=== PATIENT | female | born 1985 | race Caucasian/White ===

== ENCOUNTER 2022-01-12 00:24 | Observation (INO) | payer MEDICAID ==
[~2022-01-12] VITALS: Ht 167 cm; Wt 53.9 kg
[2022-01-13 00:45] VITALS: BP 110/68
[2022-01-13] MEDS ORDERED: ONDANSETRON 4 MG/2 ML (SDV) Z0FRAN IV PRN (01:00)
[2022-01-13] MEDS ORDERED: ACETAMINOPHEN 325 MG TABLET PO PRN (01:00)
[2022-01-13] MEDS ORDERED: polyethylene glycoL POWDER 17 GM (MIRALAX) PACK PO PRN (01:00)
[2022-01-13] MEDS ORDERED: ONDANSETRON 4 MG (ZOFRAN) ORAL DISSOLVE TAB PO PRN (01:00)
[2022-01-13] MEDS ORDERED: MELATONIN 3 MG TABLET PO PRN (01:00)
[2022-01-13] MEDS ORDERED: diphenhydrAMINE 25 MG TAB (BENADRYL) PO PRN (01:00)
[2022-01-13] MEDS ORDERED: ANTACID SUSP 30 ML UDC (MYLANTA) PO PRN (01:00)
[2022-01-13 01:59] LABS: POTASSIUM 3.1 MMOL/L (3.6-5.0)
[2022-01-13] MEDS: LACTATED RINGERS 1,000 ML IV SCH ×2 (01:59→14:59)
[2022-01-13 02:00] LABS: CALCIUM 8.7 MG/DL (8.5-10.1)
[2022-01-13 02:05] LABS: CREATININE SERUM 0.79 MG/DL (0.60-1.30)
[2022-01-13 02:07] LABS: MAGNESIUM 1.7 MG/DL (1.6-2.4)
[2022-01-13] MEDS ORDERED: KCL 20 MEQ TAB (K-DUR) PO SCH (06:00)
[2022-01-13] MEDS ORDERED: KCL 20 MEQ TAB (K-DUR) PO ONE (06:00)
[2022-01-13] MEDS ORDERED: MAGNESIUM 1 GM/100 ML IVPB 100 ML IV SCH (06:00)
[2022-01-13] MEDS ORDERED: POTASSIUM CL 10MEQ/50ML IVPB 50 ML IV SCH (06:00)
--- NOTE | 2022-01-13 14:59 | Consultation-Cardiology ---
HPI-Cardiology Cardiology Consultation: Date of Consultation 01/13/22 Date of Admission 01/13/22 Attending Physician Peri Cash MD Admitting Physician No,Local Physician Consulting Physician BARTOLOME LOZANO JR, MD HPI: Time Seen by a Provider: 14:55 Chief Complaint: Reason for consultation: Abnormal troponin level. I had the pleasure of seeing Loly in the intensive care unit at [facility] in [place], [place] this afternoon. She has no known history of cardiac disease. Yesterday she was admitted to the hospital due to narcotic overdose. Apparently, a family member found her unconscious at home and called 911. At some point, she had CPR followed by administration of Narcan at which time she regained consciousness. Unclear whether or not she was actually pulseless. She was then brought to the hospital for further treatment and evaluation. She did have 1 troponin level drawn in the emergency room that was borderline elevated. As such, a cardiology consultation was requested. I ordered a follow-up troponin which was then undetectable. She does have some soreness in her chest from the CPR but denied any chest pain prior to yesterday's incidence. She denies dyspnea, paroxysmal nocturnal dyspnea, orthopnea, palpitations, lightheadedness, syncope, or ankle edema. Certain portions of this document may have been dictated utilizing voice recognition technology. Inherent to this technology, typographical and grammatical errors may exist. As much as I am diligent to identify and correct these mistakes, some errors may remain in the document. Review of Systems-Cardiology Review of Systems Other comments Review of 10 organ systems is as per the history of present illness, otherwise negative. LGC-Cuvppv-Hsyawi Hx Patient Social History Smoking Status: Current Everyday Smoker Alcohol Use?: No Tobacco type used: Cigarettes Past Medical History PMH As described under Assessment. Family Medical History Family Medical History: She does not report any family history of premature coronary artery disease in first-degree relatives. Allergies and Home Medications Allergies Coded Allergies: No Allergy Information Available (Unverified , 01/12/22) Patient Home Medication List Home Medication List Reviewed: Yes Exam Vital Signs Vital Signs Date Time Temp Pulse Resp B/P (MAP) Pulse Ox O2 Delivery O2 Flow Rate FiO2 01/13/22 12:59 90 01/13/22 12:43 Room Air 01/13/22 12:10 38.0 4/3/22 04:00 16 99 2.00 Physical Exam General: Alert. No acute distress. Well nourished and appears stated age. Eye: Extraocular movements are intact. Conjunctivae are clear. There are no xanthelasma. Bilateral periorbital ecchymoses. HENT: Normocephalic. As above, bilateral periorbital ecchymoses. Carotid pulsations 2/2 without bruits. Neck: Jugular venous pressure does not appear elevated. No thyromegaly appreciated. Respiratory: Lungs are clear to auscultation. Respirations are non-labored. Breath sounds are equal. Symmetrical chest wall expansion. Cardiovascular: Normal rate. Regular rhythm. No murmur. No gallop. Point of maximal impulse is not appear displaced. Good pulses equal in all extremities. No edema. Gastrointestinal: Soft. Normal bowel sounds. Skin: Skin turgor is normal. There is no pallor. Musculoskeletal: No kyphosis or scoliosis appreciated. Neurologic: Alert and oriented to person, place, time. Cranial nerves 3-12 appear grossly intact. The patient has good motor tone strength in the upper and lower extremities bilaterally. Psychiatric: Cooperative. Appropriate mood & affect. Labs Laboratory Tests Test 01/13/22 01:42 01/13/22 09:36 Range/Units Sodium Level 139 135-145 MMOL/L Potassium Level 3.1 L 3.6-5.0 MMOL/L Chloride Level 102 98-107 MMOL/L Carbon Dioxide Level 23 21-32 MMOL/L Anion Gap 14 5-14 MMOL/L Blood Urea Nitrogen 7 7-18 MG/DL Creatinine 0.79 0.60-1.30 MG/DL Estimat Glomerular Filtration Rate 101 BUN/Creatinine Ratio 9 Glucose Level 90 70-105 MG/DL Calcium Level 8.7 8.5-10.1 MG/DL Magnesium Level 1.7 1.6-2.4 MG/DL Troponin I 0.043 H < 0.028 <0.028 NG/ML Triglycerides Level 58 <150 MG/DL Cholesterol Level 138 < 200 MG/DL LDL Cholesterol Direct 75 1-129 MG/DL VLDL Cholesterol 12 5-40 MG/DL HDL Cholesterol 54 40-60 MG/DL Thyroid Stimulating Hormone (TSH) 0.46 0.35-4.94 UIU/ML Radiology Echocardiogram obtained earlier today showed normal left ventricular chamber size, wall thickness and systolic function. Ejection fraction 60-65%. Normal left trigger diastolic function. The inferior vena cava was dilated with decreased respiratory variation consistent with elevated right atrial pressure. The estimated pulmonary artery systolic pressure was 35 mmHg which is borderline elevated. ECG Impression ECG Comment Electrocardiogram from this morning showed sinus rhythm with poor R wave progression. Diagnosis/Problems Diagnosis/Problems (1) Troponin level elevated Assessment & Plan: Her first troponin level was borderline elevated but this w as in the setting of opioid overdose and a short course of CPR. Her second troponin level was undetectable. I do not believe this represents an acute myocardial infarction. This may have just been a slight troponin leak due to the CPR with possible minimal cardiac contusion without wall motion abnormalities noted on her echocardiogram. From a cardiac standpoint, the patient can be discharged home. She does not need any long-term cardiology follow-up at this point in time. (2) Chest pain Assessment & Plan: Most likely related to CPR. She can take Tylenol or ibuprofen as needed. There was no evidence of pericardial effusion on her echocardiogram. (3) Opioid overdose Assessment & Plan: This was the most likely cause of the patient's unresponsiveness. (4) Cigarette smoker Assessment & Plan: She needs to quit smoking. BARTOLOME LOZANO JR, MD Jan 13, 2022 14:59
[2022-01-13] MEDS ORDERED: NALO4SPR NS (15:58)
[2022-01-13 16:30] VITALS: BP 110/68
--- NOTE | 2022-01-13 19:25 | Discharge Summary ---
Discharge Summary Hospital Course Problems/Dx: (1) Opioid overdose Status: Acute (2) Troponin level elevated Status: Acute (3) Chest pain Status: Acute (4) Cigarette smoker Status: Acute Hospital Course Date of Admission: Jan 13, 2022 at 00:52 Admission Diagnosis : Opioid overdose Family Physician/Provider: Magdy Olivo Physician Date of Discharge: 01/13/22 Discharge Diagnosis: Opioid overdose Hospital Course: Loly Davies is a 36 year old female with H opioid abuse who presented after a heroin overdose. She was found down and thought to be pulseless. CPR was initiated and she was then given Narcan. Upon receiving Narcan, she became alert. She was taken to the [facility] ER where she was stabilized. She did not require any further Narcan and her respiratory status improved. She had a slightly elevated troponin level, so was transfered to [facility] for cardiology evaluation. This was thought to be due to the CPR performed and not due to an acute [place]. Her troponin level quickly normalized. She had an echo which was unremarkable. She was instructed to discontinue drug use. She should establish with a primary care physician. Labs and Pending Lab Test: Laboratory Tests 01/13/22 01:42: Sodium Level 139, Potassium Level 3.1L, Chloride Level 102, Carbon Dioxide Level 23, Anion Gap 14, Blood Urea Nitrogen 7, Creatinine 0.79, Estimat Glomerular Filtration Rate 101, BUN/Creatinine Ratio 9, Glucose Level 90, Calcium Level 8.7, Magnesium Level 1.7, Troponin I 0.043H, Triglycerides Level 58, Cholesterol Level 138, LDL Cholesterol Direct 75, VLDL Cholesterol 12, HDL Cholesterol 54, Thyroid Stimulating Hormone (TSH) 0.46 01/13/22 09:36: Troponin I < 0.028 Home Meds Active Narcan (Naloxone HCl) 4 Mg [place] 4 Mg NS PRN 1 Days Assessment/Pt Instructions See instructions Discharge Planning: >30 minutes discharge planning Discharge Instructions Discharge Diet: No Restrictions Activity as Tolerated: Yes Discharge Physical Examination Vital Signs Vital Signs Date Time Temp Pulse Resp B/P (MAP) Pulse Ox O2 Delivery O2 Flow Rate FiO2 01/13/22 16:30 36.6 90 16 110/68 99 Room Air 2.00 General Appearance: No Apparent Distress, WD/WN HEENT: PERRL/EOMI, Pharynx Normal, Other (facial bruising) Respiratory: Lungs Clear, No Respiratory Distress, Other (chest tender to palpation) Cardiovascular: Regular Rate, Rhythm, No Murmur, Other Gastrointestinal: Normal Bowel Sounds, Soft Extremity: Normal Inspection, No Pedal Edema Skin: Normal Color, Warm/Dry Neurologic/Psychiatric: Alert, Oriented x3, Other (flat affect) Allergies: Coded Allergies: No Allergy Information Available (Unverified , 01/12/22) Discharge Summary Date of Admission Jan 13, 2022 at 00:52 Date of Discharge Jan 13, 2022 at 16:30 Discharge Date: Jan 13, 2022 Discharge Time: 16:30 Admission Diagnosis Opioid overdose Consults/Procedures Consulations Cardiology Discharge Diagnosis (1) Opioid overdose Status: Acute (2) Troponin level elevated Status: Acute (3) Chest pain Status: Acute (4) Cigarette smoker Status: Acute LORI WAHL MD Jan 13, 2022 19:24
== END 2022-01-13 16:30 | disposition home or self-care (01) ==
LOC: ICU 01-13 00:52
PROVIDERS: ADMIT Internal Medicine; ATTEND Internal Medicine
DX: T40.2X1A Poisoning by other opioids, accidental (unintentional), initial encounter (principal); R07.9 Chest pain, unspecified; R77.8 Other specified abnormalities of plasma proteins; F17.210 Nicotine dependence, cigarettes, uncomplicated
CPT/HCPCS: 80048; 80061; 83735; 84443; 84484; 93005; 93306; G0378; G0379; 36415